=== PATIENT | male | born 1995 | race Caucasian/White ===

== ENCOUNTER 2018-04-17 00:51 | Emergency (ER) | payer SELFPAY ==
--- NOTE | 2018-04-17 01:38 | ER Document Report ---
ED General - General Chief Complaint: Nausea/Vomiting/Diarrhea Stated Complaint: NAUSEA/LOWER BACK PAIN Time Seen by Provider: 04/17/18 01:25 Mode of Arrival: Ambulatory Information source: Patient Notes: 22-year-old male presents emergency to treatment with complaints of nausea, vomiting, diarrhea for the last day. He states that he has been around people with similar symptoms but not as severe. He denies any fever, chills, abdominal pain, testicular pain. Patient also notes that a week ago he twisted in the shower and felt a pop in his lower back. He noticed bruising to the area and is having pain down his bilateral lower extremities. Describes the pain as a sharp and stabbing sensation. No alleviating or exacerbating factors. He denies numbness, tingling, weakness, bowel or bladder incontinence. He's able to ambulate despite the pain. - HPI Onset: Last week Onset/Duration: Sudden Quality of pain: Sharp, Stabbing Severity: Mild Associated symptoms: Diarrhea, Nausea, Vomiting Exacerbated by: Denies Relieved by: Denies Similar symptoms previously: No Recently seen / treated by doctor: No - Related Data Allergies/Adverse Reactions: morphine Allergy (Verified 04/17/18 00:56) tramadol [From Ultram] Allergy (Verified 04/17/18 00:56) Past Medical History - General Information source: Patient - Social History Smoking Status: Current Some Day Smoker Family History: Reviewed & Not Pertinent Review of Systems - Review of Systems Constitutional: No symptoms reported EENT: No symptoms reported Cardiovascular: No symptoms reported Respiratory: No symptoms reported Gastrointestinal: Diarrhea, Nausea, Vomiting Genitourinary: No symptoms reported Musculoskeletal: Back pain Skin: Change in color Hematologic/Lymphatic: No symptoms reported Neurological/Psychological: No symptoms reported -: Yes All other systems reviewed and negative Physical Exam - Vital signs Vitals: Temp Pulse Resp BP Pulse Ox 98.4 F 94 17 135/93 H 95 04/17/18 00:58 04/17/18 00:58 04/17/18 00:58 04/17/18 00:58 04/17/18 00:58 - Notes Notes: PHYSICAL EXAMINATION: GENERAL: Well-appearing, well-nourished and in no acute distress. HEAD: Atraumatic, normocephalic. EYES: Pupils equal round and reactive to light, extraocular movements intact, sclera anicteric, conjunctiva are normal. ENT: Nares patent, oropharynx clear without exudates. Moist mucous membranes. NECK: Normal range of motion, supple without lymphadenopathy LUNGS: Breath sounds clear to auscultation bilaterally and equal. No wheezes rales or rhonchi. HEART: Regular rate and rhythm without murmurs ABDOMEN: Soft, nontender, nondistended abdomen. No guarding, no rebound. No masses appreciated. Musculoskeletal: Normal range of motion, no pitting or edema. No cyanosis. NEUROLOGICAL: Cranial nerves grossly intact. Normal speech, normal gait. Normal sensory, motor exams PSYCH: Normal mood, normal affect. SKIN: Warm, Dry, normal turgor, Contusion to lumbar area on both sides of the lumbar spine. Course - Re-evaluation Re-evalutation: 04/17/18 03:33 Labs and imaging obtained. No acute process identified. As patient is not having numbness, tingling, weakness, bowel or bladder incontinence, a stat MRI is not indicated to evaluate for his radicular pain and lumbar contusion. CT was done and showed minor disc buldge at L5-S1. Patient's nausea/vomiting has resolved. I will discharge the patient home with claire. I instructed him to take over the counter medication for pain and to follow up with his primary care physician this week. - Vital Signs Vital signs: Temp Pulse Resp BP Pulse Ox 98.4 F 94 17 135/93 H 95 04/17/18 00:58 04/17/18 00:58 04/17/18 00:58 04/17/18 00:58 04/17/18 00:58 - Laboratory Result Diagrams: 04/17/18 01:47 04/17/18 01:47 Laboratory results interpreted by me: 04/17/18 04/17/18 04/17/18 01:47 01:47 02:00 WBC 12.1 H Chloride 109 H Urine Blood LARGE H Urine Urobilinogen 2.0 H Discharge - Discharge Clinical Impression: Gastroenteritis, Bulging disc Contusion Qualifiers: Encounter type: initial encounter Contusion area: lower back Qualified Code(s): S30.0XXA - Contusion of lower back and pelvis, initial encounter Condition: Good Disposition: HOME, SELF-CARE Instructions: Gastroenteritis (adult) ([facility]), Contusion ([facility]), Radiculopathy ([facility]) Prescriptions: Ondansetron [Zofran Odt 4 mg Tablet] 1 tab PO Q4H PRN #15 tab.rapdis PRN Reason: For Nausea/Vomiting Referrals: ANGELA WEEKS MD [ACTIVE STAFF] - Follow up as needed JS DUONG MD [ACTIVE STAFF] - Follow up as needed
[2018-04-17 01:58] LABS: ABSOLUTE BASOPHILS # (AUTO) 0.1 10^3/uL (0.0-0.2); ABSOLUTE EOSINOPHILS # (AUTO) 0.1 10^3/uL (0.0-0.6); ABSOLUTE LYMPHOCYTES (AUTO) 3.4 10^3/uL (0.5-4.7); ABSOLUTE MONOCYTES (AUTO) 0.6 10^3/uL (0.1-1.4); ABSOLUTE NEUT (AUTO) 7.8 10^3/uL (1.7-8.2); BASOPHILS % (AUTO) 0.8 % (0-2); EOSINOPHILS % (AUTO) 1.1 % (0-6); HEMATOCRIT 44.8 % (37.9-51.0); HEMOGLOBIN 15.4 g/dL (13.5-17.0); LYMPHOCYTES % (AUTO) 28.4 % (13-45); MEAN CORPUSCULAR HEMOGLOBIN 30.1 pg (27.0-33.4); MEAN CORPUSCULAR HGB CONC 34.4 g/dL (32.0-36.0); MEAN CORPUSCULAR VOLUME 87 fl (80-97); MONOCYTES % (AUTO) 5.3 % (3-13); PLATELET COUNT 212 10^3/uL (150-450); RED BLOOD COUNT 5.13 10^6/uL (4.35-5.55); RED CELL DISTRIBUTION WIDTH 12.5 % (11.5-14.0); SEGMENTED NEUTROPHILS % (AUTO) 64.4 % (42-78); TOTAL CELLS COUNTED % (AUTO) 100 %; WHITE BLOOD COUNT 12.1 10^3/uL (4.0-10.5)
[2018-04-17] MEDS ORDERED: ONDANSETRON HCL INJ/PF 4 MG/2 ML SDV IV ONE (01:59)
[2018-04-17] MEDS ORDERED: NORMAL SALINE 1000 ML 1,000 ML IV ONE (02:00)
[2018-04-17 02:07] LABS: INTERNATIONAL RATION (INR) 0.92; PARTIAL THROMBOPLASTIN TIME 26.8 SEC (23.5-35.8); PROTHROMBIN TIME 12.8 SEC (11.4-15.4)
[2018-04-17 02:14] LABS: ALANINE AMINOTRANSFERASE 44 U/L (21-72); ALBUMIN 4.1 g/dL (3.5-5.0); ALKALINE PHOSPHATASE 50 U/L (38-126); ANION GAP 8 (5-19); ASPARTATE AMINO TRANSFERASE 43 U/L (17-59); BILIRUBIN,DIRECT 0.2 mg/dL (0.0-0.4); BILIRUBIN,TOTAL 0.4 mg/dL (0.2-1.3); BLOOD UREA NITROGEN 14 mg/dL (7-20); CALCIUM 9.2 mg/dL (8.4-10.2); CARBON DIOXIDE 25 mmol/L (22-30); CHLORIDE 109 mmol/L (98-107); GLUCOSE 101 mg/dL (75-110); POTASSIUM 4.1 mmol/L (3.6-5.0); TOTAL PROTEIN 6.7 g/dL (6.3-8.2)
--- NOTE | 2018-04-17 02:17 | RADIOLOGY REPORT (SQ) ---
EXAM DESCRIPTION: XR LUMBAR SPINE 2-3 VIEWS COMPLETED DATE/TME: 04/17/2018 01:29 CLINICAL HISTORY: 22 years, Male, pain COMPARISON: None. NUMBER OF VIEWS: 3 TECHNIQUE: 3 view lumbar spine LIMITATIONS: None. FINDINGS: 5 lumbar type vertebral bodies. Height and alignment is preserved. The disc spaces are maintained. Sacroiliac joints are preserved. IMPRESSION: Negative exam copyright 2010 [employer]- All Rights Reserved
[2018-04-17 02:26] LABS: APPEARANCE,URINE SLIGHTLY-CLOUDY; BILIRUBIN,URINE NEGATIVE (NEGATIVE); COLOR,URINE YELLOW; GLUCOSE, URINE NEGATIVE (NEGATIVE); KETONES,URINE NEGATIVE (NEGATIVE); LEUKOCYTE ESTERASE,URINE NEGATIVE (NEGATIVE); NITRITE,URINE NEGATIVE (NEGATIVE); PROTEIN,URINE NEGATIVE (NEGATIVE); URINE SPECIFIC GRAVITY 1.023
--- NOTE | 2018-04-17 03:08 | RADIOLOGY REPORT (SQ) ---
EXAM DESCRIPTION: CT ABDOMEN PELVIS WITH IV CONTRAST COMPLETED DATE/TME: 04/17/2018 02:34 CLINICAL HISTORY: 22 years, Male, flank pain COMPARISON: None. TECHNIQUE: 521 Images stored on PACS. All CT scanners at this facility use dose modulation, iterative reconstruction, and/or weight based dosing when appropriate to reduce radiation dose to as low as reasonably achievable (ALARA). [facility]: Dose Right [facility]: CareDose [facility]: Dose Right [facility]: Teradose 4D [facility]: ROAM Data LIMITATIONS: None. FINDINGS: Limited evaluation of the lung bases is unremarkable. Osseous structures are grossly intact. Fatty infiltrative change to the liver. The spleen, adrenal glands, pancreas, kidneys are unremarkable. The gallbladder is present, slightly contracted. No gross evidence for bowel obstruction. Normal appendix. Abundant stool in the colon. No free air or free fluid. IMPRESSION: Fatty infiltrative change to the liver. Abundant stool in the colon. TECHNICAL DOCUMENTATION: Quality ID # [id number]: Final reports with documentation of one or more dose reduction techniques (e.g., Automated exposure control, adjustment of the mA and/or kV according to patient size, use of iterative reconstruction technique) copyright 2010 [employer]- All Rights Reserved
[2018-04-17 04:10] VITALS: BP 129/81
--- NOTE | 2018-04-17 10:33 | RADIOLOGY REPORT (SQ) ---
EXAM DESCRIPTION: CT LUMBAR SPINE WITHOUT COMPLETE DATE/TIME: 04/17/2018 3:03 am REASON FOR STUDY: pain, bruising FINDINGS: Please see addendum on CT abdomen and pelvis for detailed description of the lumbar findin gs. IMPRESSION: Please see addendum on CT abdomen and pelvis for detailed description of the lumbar find ings. Reading location - IP/workstation name: [email or web address]
== END 2018-04-17 04:10 | disposition home or self-care (01) ==
LOC: ER 00:51
DX: K52.9 Noninfective gastroenteritis and colitis, unspecified (principal); M51.87 Other intervertebral disc disorders, lumbosacral region; S30.0XXA Contusion of lower back and pelvis, initial encounter; X50.1XXA Overexertion from prolonged static or awkward postures, initial encounter; Z88.5 Allergy status to narcotic agent; F17.200 Nicotine dependence, unspecified, uncomplicated
CPT/HCPCS: 99284; 96374; 36415; 85025; 85610; 85730; 80053; 81001; 72100; 72131; 74177; J2405; J7030